=== PATIENT | female | born 1955 | race Asian ===

== ENCOUNTER 2018-03-04 11:00 | Outpatient (CLI) | payer OTHER | END 2018-03-04 23:23 | disposition home or self-care (01) | LOC: MAMMO 11:00 | DX: Z12.31 Encounter for screening mammogram for malignant neoplasm of breast (principal) ==

== ENCOUNTER 2018-10-22 16:13 | Emergency (ER) | payer OTHER ==
[~2018-10-22] VITALS: Ht 162.6 cm; Wt 108.9 kg
[2018-10-22 17:01] LABS: PLATELET COUNT 302 K/uL (152-353)
[2018-10-22 17:09] LABS: POTASSIUM 3.3 mmol/L (3.6-5.2); SODIUM 127 mmol/L (136-145)
[2018-10-22 19:42] VITALS: BP 93/49; TEMP 97.8
== END 2018-10-22 19:53 | disposition home or self-care (01) ==
LOC: ED 16:13
PROVIDERS: Family Medicine
DX: R07.89 Other chest pain (principal); M94.0 Chondrocostal junction syndrome [Tietze]
CPT/HCPCS: 36415; 80053; 82550; 84484; 85027; 85379; 93005; 96365; 99284

== ENCOUNTER 2018-10-30 10:41 | Outpatient (CLI) | payer OTHER | END 2018-10-30 22:29 | disposition home or self-care (01) | LOC: RAD 10:41 | DX: S91.302A Unspecified open wound, left foot, initial encounter (principal) ==